=== PATIENT | male | born 1985 | race Caucasian/White ===

== ENCOUNTER 2024-12-05 08:11 | Outpatient (CLI) | payer OTHER | END 2024-12-05 08:12 | disposition home or self-care (01) | LOC: SCSMRI 08:11 | PROVIDERS: ATTEND Neurological Surgery | DX: M51.362 Other intervertebral disc degeneration, lumbar region with discogenic back pain and lower extremity pain (principal); M47.26 Other spondylosis with radiculopathy, lumbar region; M51.24 Other intervertebral disc displacement, thoracic region; M51.34 Other intervertebral disc degeneration, thoracic region | CPT/HCPCS: 72146 ==